=== PATIENT | female | born 2000 | race Caucasian/White ===

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

== ENCOUNTER 2020-10-28 08:15 | Outpatient (CLI) | payer OTHER | END 2020-10-28 09:06 | disposition home or self-care (01) | LOC: PRENATAL 08:15 | PROVIDERS: ATTEND Obstetrics & Gynecology Maternal & Fetal Medicine | DX: O35.0XX1 Maternal care for (suspected) central nervous system malformation in fetus, fetus 1 (principal); O35.3XX1 Maternal care for (suspected) damage to fetus from viral disease in mother, fetus 1; O98.512 Other viral diseases complicating pregnancy, second trimester; Z36.89 Encounter for other specified antenatal screening; Z3A.23 23 weeks gestation of pregnancy ==

== ENCOUNTER → 2021-02-12 | Outpatient (CLI) | payer OTHER ==
[~2021-02-12] MED LIST: FOLIC ACID20 MG PO; PRENATAL TABLE1 EAC1 PO
== END | disposition home or self-care (01) ==
LOC: OBS/DEL 02-11 17:42
PROVIDERS: ATTEND Obstetrics & Gynecology
DX: O36.8130 Decreased fetal movements, third trimester, not applicable or unspecified (principal); Z3A.38 38 weeks gestation of pregnancy; Z20.822 Contact with and (suspected) exposure to COVID-19